=== PATIENT | female | born 1980 | race African-American/Black ===

== ENCOUNTER 2019-05-25 06:12 | Inpatient (IN) | payer OTHER ==
[2019-05-25 07:18] VITALS: BMI 28.9
[2019-05-25] MEDS ORDERED: morphine SULFATE/PF 0.5 MG/ML (2cc Syringe - QUVA) ONE (08:12)
[2019-05-25] MEDS ORDERED: PHENYLEPHRINE HCL 10 MG/1 ML SINGLE DOSE VIAL ONE (08:26)
[2019-05-25] MEDS ORDERED: ceFAZolin SODIUM 1 GM VIAL ONE (08:26)
[2019-05-25] MEDS ORDERED: OXYTOCIN 10 UNITS/ML VIAL ONE (08:35)
[2019-05-25] MEDS ORDERED: KETOROLAC TROMETHAMINE 30 MG/1 ML VIAL ONE (08:51)
[2019-05-25] MEDS ORDERED: morphine SULFATE/PF 0.5 MG/ML (2cc Syringe - QUVA) EP ONE (09:19)
[2019-05-25] MEDS ORDERED: OXYTOCIN 20 UNITS in 0.9% NS 20 UNIT/1,000 ML INFUS.BAG IV ONE ×2 (09:28→13:44)
[2019-05-25] MEDS ORDERED: ONDANSETRON 4 MG/2 ML VIAL IVPUSH PRN ×2 (09:32)
[2019-05-25] MEDS ORDERED: ACETAMINOPHEN 1000 MG/100 ML VIAL (NON FORMULARY) IVPB ONE (09:33)
[2019-05-25] MEDS ORDERED: CITRIC ACID/SODIUM CITRATE 30 ML UNIT-DOSE CUP PO ONE (09:38)
[2019-05-25] MEDS ORDERED: ELECTROLYTE-148 SOLN 500 ML IV ONE (09:38)
[2019-05-25] MEDS ORDERED: ELECTROLYTE-148 SOLN 1,000 ML IV SCH (09:45)
[2019-05-25] MEDS ORDERED: LACTATED RINGERS SOLUTION 1,000 ML IV SCH (09:45)
--- NOTE | 2019-05-25 09:46 | HP ---
Past Medical History - Admission Chief Complaint: macrosomia, poor controlled gdm on insulin,polyhrdramnious History Source: Patient Limitations to Obtaining History: No Limitations - Past Medical History SANITATION SUPERVISOR: No: Alzheimer's, CVA, Dementia, Migraine, Multiple Sclerosis, Peripheral Neuropathy, Parkinson's, Seizure, Syncope, TIA, Vertigo, Other Cardiovascular: No: AFIB, Aneurysm, Aortic Insufficiency, Aortic Stenosis, CAD, CHF, Deep Vein Thrombosis, HTN, Hyperlipdemia, CA, Mitral Insufficiency, Mitral Stenosis, Murmur, Pulmonary Hypertension, Other Pulmonary: No: Asthma, Bronchitis, Cancer, COPD, O2 Dependent, Pneumonia, Previously Intubated, Pulmonary Embolus, Pulmonary Fibrosis, Sleep Apnea, Other Gastrointestinal: No: Ascites, Cancer, Constipation, Crohn's Disease, Diverticulitis, Diverticulosis, Esophageal Varices, Gastritis, GERD, GI Bleed, Hemorrhoids, Hiatal Hernia, Inflamatory Bowel Disease, Irritable Bowel Disease, Pancreatitis, Peptic Ulcer Disease, Ulcerative Colitis, Other Hepatobiliary: No: Cirrhosis, Cholelithiasis, Cholecystitis, Choledocholithiasis , Hepatitis A, Hepatitis B, Hepatitis C, Other Renal/: No: Renal Failure, Renal Inusuff, BPH, Cancer, Hematuria, Hemodialysis , Neurogenic Bladder, Renal Calculi, UTI, Other Reproductive: No: Ectopic , Endometriosis, Fibroids, PID, Polycystic Ovary Syndrome, Postmenopausal, Other ...: 4 ...Para: 1 ...Term: 1 ...: 0 ...Spon : 2 ...Induced : 0 ...Multiple Gestation: 0 ... Weeks Gestation by Dates: 38.0 ...EDC by Dates: 06/08/19 ...EDC by Sono: 06/11/19 Heme/Onc: No: Anemia, B12 Deficiency, Bleeding Disorder, Cancer, Current Chemotherapy, Current Radiation Therapy, Hemochromatosis, Hypercoaguable State, Myeloproliferative Synd, Sickle Cell Disease, Sickle Cell Trait, Thrombocytopenia, Other Infectious Disease: No: AIDS, C-Diff, Herpes Zoster, HIV, MRSA, STD's, Tuberculosis, VREF, Other Psych: No: Addictions, Anxiety, Bipolar, Depression, Panic, Psychosis, Schizophrenia, Other Musculoskeletal: No: Bursitis, Chronic low back pain, Hemiparesis, Hemiplegia, Osteoarthritis, Paraplegia, Other Rheumatology: No: Fibromyalgia, Gout, Lupus, Rheumatoid Arthritis, Sarcoidosis, Vasculitis, Other ENT: No: Allergic Rhinitis, Sinusitis, Other Endocrine: No: Brian's Disease, Zoila's Disease, Diabetes Insipidus, Diabetes Mellitus, Hyperparathyroidism, Hyperthyroidism, Hypothyroidism, Osteopenia, SIADH, Other Dermatology: No: Basal Cell, Cellulitis, Eczema, Melanoma, Psoriasis, Squamous Cell, Other - Past Surgical History Past Surgical History: No: None, AAA Repair, AICD, Amputation, Appendectomy, Arthrosocopy, AV Fistula/Graft, Bariatric Surgery, Breast Biopsy, Bypass, CABG, Carotid Endarterectomy, Cataract Removal, Cholecystectomy, Colectomy, Colonoscopy, Colostomy, Craniotomy, , Cystectomy, Hernia Repair, Hysterectomy, Ileal Conduit, Ileosotomy, Joint Replacement, Kidney Transplant, Laminectomy, Liver Transplant, Mastectomy, Nephrectomy, Oopherectomy, Orchiectomy, Permanent Pacemaker, Prostatectomy, Splenectomy, Stent, Thoracotomy , TURP, Tonsillectomy, Tubal Ligation, Upper Endoscopy, Valve Replacement, Vasectomy, Vein Stripping/Ligation Hx Myomectomy: No Hx Transabdominal Cerclage: No - Advance Directives Advance Directives: Yes: Living Will - Smoking History Smoking history: Never smoked Have you smoked in the past 12 months: No - Alcohol/Substance Use Hx Alcohol Use: No History of Substance Use: reports: None - Social History Usual Living Arrangement: Yes: With Significant Other Do you think of yourself as: Straight/Heterosexual ADL: Independent History of Recent Travel: No Home Medications - Allergies Allergies/Adverse Reactions: Allergies Allergy/AdvReac Type Severity Reaction Status Date / Time No Known Allergies Allergy Verified 05/25/19 06:44 - Home Medications Home Medications: Ambulatory Orders Insulin Lispro [Admelog] 18 unit SQ ACBK 05/16/19 Insulin Lispro [Admelog] 18 unit SQ ACDIN 05/16/19 Insulin Lispro [Admelog] 18 unit SQ ACLD 05/16/19 Insulin Lispro [Humalog] 10 unit SQ ACBK 05/16/19 Insulin Lispro [Humalog] 10 unit SQ ACDIN 05/16/19 Family Medical History Family History: Denies Review of Systems - Review of Systems Constitutional: reports: No Symptoms Eyes: reports: No Symptoms HENT: reports: No Symptoms Neck: reports: No Symptoms Cardiovascular: reports: No Symptoms Respiratory: reports: No Symptoms Gastrointestinal: reports: No Symptoms Genitourinary: reports: No Symptoms Breasts: reports: No Symptoms Reported Musculoskeletal: reports: No Symptoms Integumentary: reports: No Symptoms Neurological: reports: No Symptoms Endocrine: reports: No Symptoms Hematology/Lymphatic: reports: No Symptoms Psychiatric: reports: No Symptoms Physical Exam - Maternity Vital Signs: Vital Signs Temperature 97.8 F 05/25/19 06:45 Pulse Rate 98 H 05/25/19 06:45 Respiratory Rate 18 05/25/19 06:45 Blood Pressure 97/72 05/25/19 06:45 O2 Sat by Pulse Oximetry (%) Constitutional: Yes: Well Nourished, No Distress, Calm Eyes: Yes: WNL, Conjunctiva Clear, EOM Intact HENT: Yes: WNL, Atraumatic, Normocephalic Neck: Yes: WNL, Supple, Trachea Midline Cardiovascular: Yes: WNL, Regular Rate and Rhythm Lungs: Clear to auscultation Breast(s): Yes: WNL - Abdominal Exam/OB Fundal Height: 42 Number of Fetuses: Single Presentation: Vertex Contractions: Yes Regularity: Irritability Intensity: Mild Monitor Mode: External Heart Rate Location: [facility] Category: I Accelerations: Uniform Decelerations: None - Vaginal Exam/OB Vaginal Bleediing: No Speculum Exam: No Amniotic Membrane Status: Intact Presentation: Vertex/Position Station: -3 - Physical Exam Musculoskeletal: Yes: WNL Extremities: Yes: WNL Edema: Yes Edema: LUE: 1+, RUE: 1+, LLE: 1+, RLE: 1+ Integumentary: Yes: WNL Deep Tendon Reflex Grade: Normal +2 ...Motor Strength: WNL Psychiatric: Yes: WNL, Alert, Oriented Hemorrhage Risk Assessment - Risk Factors Medium Risk Factors: Yes: EFW greater than 4000g Risk Score: 1 Risk Level: Medium Risk Assessment/Plan poorly controlled gdm on insulin, greater than 10 lb, polyhydramnious, for c s
[2019-05-25] MEDS ORDERED: IBUPROFEN 800 MG/8 ML IJ IVPB PRN (09:48)
[2019-05-25] MEDS ORDERED: METHYLERGONOVINE MALEATE 0.2 MG/1 ML AMP IM PRN (09:48)
[2019-05-25] MEDS ORDERED: oxyCODONE HCL 5 MG TABLET PO PRN (09:48)
--- NOTE | 2019-05-25 09:48 | OP ---
Operative Note - Note: Operative Date: 05/25/19 Pre-Operative Diagnosis: macrosomia, gdm on insulin poorly controlled, polyhydramnious, Operation: primary lt c s Findings: same Post-Operative Diagnosis: Same as Pre-op Surgeon: Adriano Herron Senior Hardware Engineer: Amandeep Alarcon Anesthesiologist/MUSICAL STRING MAKER: Marco Cruz Anesthesia: Spinal Specimens Removed: placenta Estimated Blood Loss (mls): 800 Operative Report Dictated: Yes
[2019-05-25] MEDS ORDERED: OXYTOCIN 20 UNITS in 0.9% NS 20 UNIT/1,000 ML INFUS.BAG IV SCH (10:00)
[2019-05-25] MEDS ORDERED: ACETAMINOPHEN INJECTION 100 ML IVPB ONE (10:09)
--- NOTE | 2019-05-25 10:45 | OP ---
DATE OF OPERATION: 05/25/2019 PREOPERATIVE DIAGNOSES: Macrosomia, polyhydramnios and poorly controlled gestational diabetic on insulin and greater than 10 pounds baby. POSTOPERATIVE DIAGNOSES: Macrosomia, polyhydramnios and poorly controlled gestational diabetic on insulin and greater than 10 pounds baby. PROCEDURE: Primary low transverse section. SURGEON: Adriano Herron MD SENIOR ORACLE DATABASE ADMINISTRATOR: MARIA ESTHER Ibarra ANESTHESIOLOGIST: Jaycob Cruz MD ANESTHESIA: Spinal. PATHOLOGY: Placenta. BLOOD LOSS: About 800 mL INDICATION: This is a 38-year-old female patient, was known to be gestational diabetic on insulin and patient was poorly controlled with glucose monitoring and poorly controlled with diet, diabetic on insulin. Patient is not compliant, does not take her insulin regularly and forgets to take her insulin, has to be constantly reminded, and patient does not follow up with her regular appointment routinely as per schedule. So, patient was seen by perinatologist, Dr. Quiroz and the sonogram has confirmed that baby is greater than 10 pounds and the patient has been educated about macrosomia and diabetic and so, although patient is 38 weeks, but because the patient has polyhydramnios and the patient is greater than 10 pounds and the glucose is poorly controlled, so patient is suggested to be delivered at 38 weeks for above indication and patient agreed, and patient requests because of macrosomia too. PROCEDURE: So, patient was placed on the operating table in the supine position after the spinal anesthesia was obtained. The patient's abdomen and pelvis were prepped and draped in the usual sterile manner. Pfannenstiel incision was made. Incision was made through the skin, subcutaneous tissue until the fascia was nicked in the midline and fascia extended bilaterally. Intraperitoneal cavity was entered. No bladder flap was created. Low transverse segment of the uterus entered. Baby delivered from ALDO position, and baby was hand delivered to the furnace erector after umbilical cord doubly clamped and cut. Cord blood gas obtained. Placenta was removed. Uterus was closed in single layer, first layer interlocking Vicryl sutures. Good hemostasis. Both gutters were cleaned. Both ovaries, fallopian tubes, uterus were within normal limits. No complication. No fibroid. No cyst was seen and the patient tolerated the procedure well. The peritoneum was closed. The fascia was closed. Skin was closed. Draining clear urine. Blood loss about 500 mL. MD BRUCE BHAGAT/[id number]
[2019-05-26 08:29] LABS: BASO % 0.2 % (0-2.0); EOS % 0.2 % (0-4.5); HEMATOCRIT 32.1 % (32.4-45.2); HEMOGLOBIN 10.2 GM/dL (10.7-15.3); LYMPH % 11.8 % (8-40); MCHC 31.7 g/dl (32.0-36.0); MEAN CELL VOLUME 78.9 fl (80-96); MEAN PLT VOLUME 8.9 fl (7.5-11.1); MONO % 7.1 % (3.8-10.2); NEUT % 80.7 % (42.8-82.8); PLATELET COUNT 186 K/MM3 (134-434); RBC 4.07 M/mm3 (3.60-5.2); RDW 16.9 % (11.6-15.6); WHITE BLOOD COUNT 10.6 K/mm3 (4.0-10.0)
--- NOTE | 2019-05-26 09:31 | PN ---
Progress Note (short form) - Note Progress Note: POD #1 s/p c/s under spinal with intrathecal Duramorph. Doing well, c/o some puritus but tolerable. Pain is under control. All questions answered.
[2019-05-26] MEDS ORDERED: BISACODYL 10 MG SUPP.RECT RC PRN (09:48)
[2019-05-26] MEDS: ENOXAPARIN NA (PORCINE) 40 MG/0.4 ML DISP.SYRIN SQ SCH (10:57)
[2019-05-26] MEDS: SIMETHICONE 80 MG TAB.CHEW (FP) PO PRN ×3 (10:58→22:01)
[2019-05-26] MEDS: ACETAMINOPHEN 325 MG TABLET (FP) PO PRN ×3 (10:58→22:58)
[2019-05-26] MEDS: IBUPROFEN 600 MG TABLET (FP) PO PRN ×2 (10:58→16:57)
--- NOTE | 2019-05-26 16:21 | PN ---
Post Progress Note Post Day: 1 Type of Delivery: Primary C/S Vital Signs: Vital Signs Temperature 97.7 F 05/26/19 10:00 Pulse Rate 71 05/26/19 10:00 Respiratory Rate 18 05/26/19 10:00 Blood Pressure 107/65 05/26/19 10:00 O2 Sat by Pulse Oximetry (%) 100 05/25/19 13:45 Breast Exam: Yes: Soft Uterus: Yes: Fundus Firm, Fundus below umbilicus Incision: Yes: Dressing dry and intact, Sutures intact Abdomen/GI: Yes: Abdomen soft, Passing flatus, Tolerating PO Lochia: Yes: Serosa Lochia, amount: Small Extremities: Yes: Calves non-tender Perineum: Yes: Intact Activity: Ambulating - Labs Labs: CBC WBC 10.6 K/mm3 (4.0-10.0) H 05/26/19 07:18 RBC 4.07 M/mm3 (3.60-5.2) 05/26/19 07:18 Hgb 10.2 GM/dL (10.7-15.3) L 05/26/19 07:18 Hct 32.1 % (32.4-45.2) L 05/26/19 07:18 MCV 78.9 fl (80-96) L 05/26/19 07:18 MCH 25.0 pg (25.7-33.7) L 05/26/19 07:18 MCHC 31.7 g/dl (32.0-36.0) L 05/26/19 07:18 RDW 16.9 % (11.6-15.6) H 05/26/19 07:18 Plt Count 186 K/MM3 (134-434) 05/26/19 07:18 MPV 8.9 fl (7.5-11.1) 05/26/19 07:18 Absolute Neuts (auto) 8.6 K/mm3 (1.5-8.0) H 05/26/19 07:18 Neutrophils % 80.7 % (42.8-82.8) 05/26/19 07:18 Lymphocytes % 11.8 % (8-40) D 05/26/19 07:18 Monocytes % 7.1 % (3.8-10.2) 05/26/19 07:18 Eosinophils % 0.2 % (0-4.5) 05/26/19 07:18 Basophils % 0.2 % (0-2.0) 05/26/19 07:18 Nucleated RBC % 0 % (0-0) 05/26/19 07:18 Assessment/Plan doing well, no severe pain, glucose levels well controlled, below 200
[2019-05-26] MEDS: SENNOSIDES/DOCUSATE COMBO (SENNA PLUS) TABLET (UD) PO PRN (22:01)
[2019-05-26] MEDS: oxyCODONE HCL 5 MG TABLET PO PRN (22:58)
[2019-05-27] MEDS: IBUPROFEN 600 MG TABLET (FP) PO PRN ×5 (01:03→21:30)
[2019-05-27] MEDS: ACETAMINOPHEN 325 MG TABLET (FP) PO PRN ×2 (04:39→09:28)
[2019-05-27] MEDS: SIMETHICONE 80 MG TAB.CHEW (FP) PO PRN ×4 (04:40→21:30)
[2019-05-27] MEDS: ENOXAPARIN NA (PORCINE) 40 MG/0.4 ML DISP.SYRIN SQ SCH (09:28)
--- NOTE | 2019-05-27 13:00 | PN ---
Post Progress Note Post Day: 2 Type of Delivery: Primary C/S Vital Signs: Vital Signs Temperature 98.0 F 05/27/19 09:00 Pulse Rate 74 05/27/19 09:00 Respiratory Rate 20 05/27/19 09:00 Blood Pressure 110/75 05/27/19 09:00 O2 Sat by Pulse Oximetry (%) 100 05/25/19 13:45 Breast Exam: Yes: Soft Uterus: Yes: Fundus Firm Incision: Yes: Dressing dry and intact, Sutures intact Abdomen/GI: Yes: Abdomen soft, Passing flatus, Tolerating PO Lochia: Yes: Serosa Lochia, amount: Small Extremities: Yes: Calves non-tender Perineum: Yes: Intact Activity: Ambulating - Labs Labs: CBC WBC 10.6 K/mm3 (4.0-10.0) H 05/26/19 07:18 RBC 4.07 M/mm3 (3.60-5.2) 05/26/19 07:18 Hgb 10.2 GM/dL (10.7-15.3) L 05/26/19 07:18 Hct 32.1 % (32.4-45.2) L 05/26/19 07:18 MCV 78.9 fl (80-96) L 05/26/19 07:18 MCH 25.0 pg (25.7-33.7) L 05/26/19 07:18 MCHC 31.7 g/dl (32.0-36.0) L 05/26/19 07:18 RDW 16.9 % (11.6-15.6) H 05/26/19 07:18 Plt Count 186 K/MM3 (134-434) 05/26/19 07:18 MPV 8.9 fl (7.5-11.1) 05/26/19 07:18 Absolute Neuts (auto) 8.6 K/mm3 (1.5-8.0) H 05/26/19 07:18 Neutrophils % 80.7 % (42.8-82.8) 05/26/19 07:18 Lymphocytes % 11.8 % (8-40) D 05/26/19 07:18 Monocytes % 7.1 % (3.8-10.2) 05/26/19 07:18 Eosinophils % 0.2 % (0-4.5) 05/26/19 07:18 Basophils % 0.2 % (0-2.0) 05/26/19 07:18 Nucleated RBC % 0 % (0-0) 05/26/19 07:18 Assessment/Plan doing well, glucose well controlled , possible dc pt home tomorrow
--- NOTE | 2019-05-27 13:04 | DS ---
Physical Exam-KILN MAINTENANCE Vital Signs: Vital Signs Temperature 98.0 F 05/27/19 09:00 Pulse Rate 74 05/27/19 09:00 Respiratory Rate 20 05/27/19 09:00 Blood Pressure 110/75 05/27/19 09:00 O2 Sat by Pulse Oximetry (%) 100 05/25/19 13:45 Constitutional: Yes: Well Nourished, No Distress, Calm Eyes: Yes: WNL, Conjunctiva Clear, EOM Intact HENT: Yes: WNL, Atraumatic, Normocephalic Neck: Yes: WNL, Supple, Trachea Midline Cardiovascular: Yes: WNL, Regular Rate and Rhythm Respiratory: Yes: WNL, Regular, CTA Bilaterally Gastrointestinal: Yes: WNL, Normal Bowel Sounds, Soft ...Rectal Exam: Yes: WNL Renal/: Yes: WNL Pelvis: Yes: WNL External Genitalia: Yes: Normal Internal Exam Deferred: No Vaginal Exam: Yes: Normal Cervix: Yes: Normal Uterus: Yes: Normal Adnexa: Normal: Bilateral ....Post : Yes: Uterus firm, Uterus non-tender Breast(s): Yes: WNL Musculoskeletal: Yes: WNL Extremities: Yes: WNL Edema: Yes Edema: LUE: 1+, RUE: 1+, LLE: 1+, RLE: 1+ Integumentary: Yes: WNL Wound/Incision: Yes: Clean/Dry, Well Approximated Neurological: Yes: WNL, Alert, Oriented ...Motor Strength: WNL Psychiatric: Yes: WNL, Alert, Oriented Labs: CBC, BMP 05/26/19 07:18 Delivery - Delivery Maneuvers: none Section: Primary Type of Anesthesia: Spinal Episiotomy/Laceration: None EBL (cc): 800 Delivery, Single - Stages of Labor Date of Delivery: 05/25/19 Time of Delivery: 08:34 Time Placenta Delivered: 08:35 - Condition of Furnace Maintenance/Electrical Electronics Engineers Present: Yes Name: Lori Shaw Infant Gender: Female Weight: 4.564 kg Position: Left, OA Total Hours ROM (Hrs/Mins): 2min - 1 Minute Total Score: 8 5 Minutes Total Score: 9 - Feeding Plan Initial Plan: Elected not to breastfeed exclusively throughout hospitalization Discharge Summary Problems reviewed: Yes Reason For Visit: ADMIT Procedures: Principal: primary lt c s Other Procedures: none Hospital Course: uneventful Health Concerns: none Plan of Treatment: oob as much as possible , well glucose controlled Condition: Good - Instructions Diet, Activity, Other Instructions: regular, routine post c s care Disposition: HOME - Home Medications Comprehensive Discharge Medication List: Ambulatory Orders Insulin Lispro [Admelog] 18 unit SQ ACBK 05/16/19 Insulin Lispro [Admelog] 18 unit SQ ACDIN 05/16/19 Insulin Lispro [Admelog] 18 unit SQ ACLD 05/16/19 Insulin Lispro [Humalog] 10 unit SQ ACBK 05/16/19 Insulin Lispro [Humalog] 10 unit SQ ACDIN 05/16/19 Prescription Drug Monitoring Program (I-STOP) results: I-STOP reviewed and no issues identified
[2019-05-27] MEDS: oxyCODONE HCL 5 MG TABLET PO PRN ×2 (15:50→21:31)
[2019-05-27] MEDS: SENNOSIDES/DOCUSATE COMBO (SENNA PLUS) TABLET (UD) PO PRN (21:35)
[2019-05-28] MEDS: ACETAMINOPHEN 325 MG TABLET (FP) PO PRN ×3 (06:02→21:57)
[2019-05-28] MEDS: SIMETHICONE 80 MG TAB.CHEW (FP) PO PRN ×3 (06:02→21:55)
[2019-05-28] MEDS: IBUPROFEN 600 MG TABLET (FP) PO PRN ×3 (06:03→21:55)
[2019-05-28] MEDS: ENOXAPARIN NA (PORCINE) 40 MG/0.4 ML DISP.SYRIN SQ SCH (09:51)
[2019-05-29] MEDS: ENOXAPARIN NA (PORCINE) 40 MG/0.4 ML DISP.SYRIN SQ SCH (10:41)
[2019-05-29 13:00] VITALS: BP 109/71; PULSE 78; TEMP 98.6
== END 2019-05-29 15:45 | disposition home or self-care (01) | DRG 540 ==
LOC: JLDR 06:12 → J3W 15:18
PROVIDERS: ADMIT Obstetrics & Gynecology; ATTEND Obstetrics & Gynecology
PROC: 10D00Z1 Extraction of Products of Conception, Low, Open Approach (ICD-10-PCS; principal; 2019-05-25)
DX: O40.3XX0 Polyhydramnios, third trimester, not applicable or unspecified (principal); O24.429 Gestational diabetes mellitus in childbirth, unspecified control; O36.60X0 Maternal care for excessive fetal growth, unspecified trimester, not applicable or unspecified; Z3A.38 38 weeks gestation of pregnancy; Z37.0 Single live birth
CPT/HCPCS: 36415; 82962; 85025; 88307-TC; J0131